=== PATIENT | male | born 2005 | race Caucasian/White ===

== ENCOUNTER 2023-09-26 16:06 | Emergency (ER) | payer MEDICAID ==
[~2023-09-26] VITALS: Ht 172.7 cm; Wt 63.0 kg
[2023-09-26 16:11] VITALS: BP 133/89; PULSE 93; RESP 16; TEMP 98; O2SAT 97
[2023-09-26 18:08] LABS: BASOPHILS % (AUTO) 0.2 % (0-1); EOSINOPHILS % (AUTO) 0.3 % (0-6); HEMATOCRIT 47.5 % (42.0-52.0); HEMOGLOBIN 15.9 g/dl (14.0-17.9); LYMPHOCYTES # (AUTO) 1.2 X10'3 (1.1-4.8); LYMPHOCYTES % (AUTO) 12.3 % (21-51); MEAN CORPUSCULAR HEMOGLOBIN 30.4 PG (27.0-31.0); MEAN CORPUSCULAR HGB CONC 33.5 g/dL (33.0-36.5); MEAN CORPUSCULAR VOLUME 90.7 FL (78-98); MEAN PLATELET VOLUME 8.5 FL (7.4-10.4); MONOCYTES # (AUTO) 0.7 X10'3 (0-0.9); MONOCYTES % (AUTO) 6.9 % (2-12); NEUTROPHILS # (AUTO) 7.7 X10'3 (1.8-7.7); NEUTROPHILS % (AUTO) 80.3 % (42-75); PLATELET COUNT 235 X10'3 (140-440); RED BLOOD COUNT 5.24 X10'6 (4.70-6.10); RED CELL DISTRIBUTION WIDTH 12.7 % (11.5-14.5); WHITE BLOOD COUNT 9.6 X10'3 (4.5-11.0)
[2023-09-26 18:21] LABS: ALBUMIN 4.2 G/DL (3.4-5.0); ANION GAP 9 (8-16); BLOOD UREA NITROGEN 14 MG/DL (7-18); BUN/CREATININE RATIO 13.9 (10.0-20.0); CALCIUM 9.3 MG/DL (8.5-10.1); CHLORIDE 106 MMOL/L (99-107); CREATININE 1.01 MG/DL (0.60-1.10); ETHANOL < 10 MG/DL (<10); GLUCOSE 89 MG/DL (70-104); POTASSIUM 4.1 MMOL/L (3.5-5.1); SALICYLATE 0.7 MG/DL (4.0-20.0); SODIUM 142 MMOL/L (135-145); TOTAL CARBON DIOXIDE 26.7 MMOL/L (24-32); eCRCL 104 ML/MIN; eGFR > 90 ML/MIN
[2023-09-26 18:29] LABS: ACETAMINOPHEN < 2.0 UG/ML (10-30)
[2023-09-26] MEDS ORDERED: HYDR-3686 PO (19:00)
== END 2023-09-26 19:20 | disposition home or self-care (01) ==
LOC: EDBD 16:07 → ER 16:07
DX: R45.7 State of emotional shock and stress, unspecified (principal); F41.9 Anxiety disorder, unspecified; R07.89 Other chest pain
CPT/HCPCS: 36415; 80048; 80320; 80329; 85025; 93005; 99284